=== PATIENT | male | born 1990 | race Caucasian/White ===

== ENCOUNTER → 2016-06-20 | Outpatient (CLI) | payer OTHER ==
[~2016-06-20] MED LIST: IOPAMIDOL (ISOVUE-300) 100 ML BTL IV ONE
--- NOTE | 2016-06-20 16:09 | CT ---
CT Abdomen and Pelvis With Contrast 1539 hours. History: Right-sided abdominal pain. Possible appendicitis. Technique: Spiral imaging was obtained through the abdomen and pelvis during the administration of 90 mL Isovue-300 IV contrast. Images were reviewed in multiple planes. Dose reduction techniques were u tilized. CT Abdomen and Pelvis Findings: Appendix: Normal. Lung bases: Normal. Liver: Normal. Spleen: Normal. Gallbladder and Bile Ducts: The gallbladder is contracted. No radiopaque gallstones are seen. There is no biliary ductal dilatation. Pancreas: Normal. Adrenals: Normal. Kidneys: No obstruction or solid masses. Abdominal Aorta: No aneurysm. Pelvic structures: Normal Bladder: Normal. Bowel Loops: Normal. No bowel obstruction, ascites, or significant retroperitoneal lymphadenopathy. With associated modera te spinal stenosis Skeletal system: Vertebral body heights are well-maintained. There are no lytic or sclerotic osseous lesions. There is a moderate disk bulge with left paracentral disk protrusion at L4-L5 with associate d moderate spinal stenosis. Impression: Normal CT abdomen and pelvis. No evidence for appendicitis. Incidental moderate disk bulge with left paracentral disk protrusion at L4-L5.
== END ==
LOC: FIMAGING 08:14
PROVIDERS: ATTEND Internal Medicine Gastroenterology
DX: R10.31 Right lower quadrant pain (principal)
CPT/HCPCS: Q9967